=== PATIENT | female | born 1980 | race African-American/Black ===

== ENCOUNTER 2016-07-31 15:12 | Emergency (ER) | payer SELFPAY ==
[~2016-07-31] VITALS: Ht 170.2 cm; Wt 96.0 kg
[~2016-07-31 15:12] MED LIST: ACET500C5 PO
[2016-07-31 15:16] VITALS: Ht 170.2 cm; Wt 96.0 kg
[2016-07-31] MEDS ORDERED: KETOROLAC 30 MG INJ IM STA (15:39)
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
[2016-07-31] MEDS ORDERED: MELO-110 PO (16:55)
[2016-07-31] MEDS ORDERED: CYCL-319 PO (16:55)
--- NOTE | 2016-07-31 16:56 | RADRPT ---
PROCEDURE: XR Cervical Spine. CLINICAL INDICATION: Neck pain TECHNIQUE: Three views of the cervical spine were performed. COMPARISON: None. FINDINGS: The vertebral bodies are normal in mineralization, architecture and alignment. No fracture or osseou s lesion is identified. No subluxation is demonstrated. There is mild C5-6 degenerative disk disea se. This is associated with space narrowing, endplate sclerosis and spondylosis. The uncinate joint s are unremarkable. The facet joints are unremarkable. The soft tissues are normal. IMPRESSION: Mild C5-6 degenerative disk disease. RPTAT: HG[facility] .Jean Claude Holley MD, Date Time Electronically viewed and signed by .Jean Claude Holley MD, on 07/31/2016 16:56 .B/
--- NOTE | 2016-07-31 17:03 | RADRPT ---
PROCEDURE: XR thoracic spine. CLINICAL INDICATION: Back pain TECHNIQUE: AP and lateral radiographs of the thoracic spine are available for review. COMPARISON: None. FINDINGS: There is a minimal dextroscoliosis of the upper thoracic spine and a minimal levoscoliosis of the lo wer thoracic spine. The thoracic spine is otherwise normal in mineralization, architecture and alignment. No fractures or osseous lesions are identified. The disk spaces are unremarkable. The soft tissues are unremark able. IMPRESSION: Minimal dextroscoliosis of the upper thoracic spine and a minimal levoscoliosis of the lower thoraci c spine Otherwise unremarkable examination RPTAT: HGDB .Jean Claude Holley MD, MD Date Time Electronically viewed and signed by .Jean Claude Holley MD, MD on 07/31/2016 17:03 .B/
--- NOTE | 2016-07-31 17:04 | RADRPT ---
PROCEDURE: XR Lumbar Spine. CLINICAL INDICATION: Low back pain. TECHNIQUE: 3 views of the lumbar spine available for review COMPARISON: None available FINDINGS: There is normal mineralization, architecture and alignment. No fractures or osseous lesions are behzad ntified. No subluxation is identified. The disk spaces are unremarkable. The facet joints are unr emarkable. The soft tissues are unremarkable. IMPRESSION: Unremarkable lumbar spine x-ray. RPTAT: HG[facility] .Jean Claude Holley MD, MD Date Time Electronically viewed and signed by .Jean Claude Holley MD, on 07/31/2016 17:03 .B/
== END 2016-07-31 17:20 | disposition home or self-care (01) ==
LOC: FTE 15:12
DX: M54.6 Pain in thoracic spine (principal); M54.5 Low back pain; M54.2 Cervicalgia
CPT/HCPCS: 72040; 72072; 72100; J1885; 96372